=== PATIENT | female | born 2000 | race Caucasian/White ===

== ENCOUNTER 2021-02-19 01:38 | Inpatient (IN) | payer OTHER, SELFPAY ==
[2021-02-19] VITALS (16 sets, daily range): BP systolic 104–133; BP diastolic 55–85; PULSE 55–97; RESP 14–20; TEMP 36.2–37.3; O2SAT 97–100; BMI 37.8; BMI 40.0
--- NOTE | ~2021-02-19 | US_ITS ---
EXAMINATION: ABDOMINAL ULTRASOUND LIMITED CLINICAL INFORMATION: Right upper quadrant pain. COMPARISON: Same day abdominal and pelvic CT. TECHNIQUE: Real-time imaging of the right upper quadrant abdominal viscera. FINDINGS: PANCREAS: The visualized pancreatic head and body are normal in appearance. The remainder of the pancreas is obscured from visualization by the overlying bowel gas. LIVER: The liver is of normal size and echogenicity without focal lesions nor intrahepatic biliary ductal dilation. GALLBLADDER: There is no bladder wall thickening measuring up to 5 mm. No definite pericholecystic fluid is identified. There is debris present within the gallbladder lumen. In addition, there is a 12 mm calculus near the neck of the gallbladder. COMMON BILE DUCT: Normal in caliber measuring 0.4 cm in diameter. RIGHT KIDNEY: Normal. No hydronephrosis. No renal calculi or focal parenchymal lesions. The kidney measures 12.2 cm in maximum dimension. FREE FLUID: None. US/US abdomen limited IMPRESSION: Cholelithiasis and bladder wall thickening suspicious for cholecystitis. Correlate clinically.
--- NOTE | ~2021-02-19 | CT_ITS ---
EXAMINATION: CT ABDOMEN AND PELVIS WITH CONTRAST CLINICAL INFORMATION: Epigastric and right upper quadrant pain. COMPARISON: None. TECHNIQUE: Contiguous axial thin section helical images of the abdomen and pelvis were performed following the administration of 85 mL of intravenous Omnipaque 300. The data set was reformatted in the coronal and sagittal planes and reviewed on an independent workstation. DLP: 853 mGy-cm. FINDINGS: The visualized lung bases are clear. The visualized portions of the heart are unremarkable. The liver is of normal size and attenuation without focal lesions nor intrahepatic biliary ductal dilation. There is gallbladder wall thickening with likely trace adjacent free fluid. There is no cholelithiasis. The gallbladder wall measures approximately 4 mm. The spleen, pancreas, adrenal glands are unremarkable. Both kidneys are of normal size and attenuation without hydronephrosis or nephrolithiasis. Following the administration of IV contrast, prompt symmetric nephrograms are displayed. There is no abdominal free fluid. There is neither mesenteric nor retroperitoneal lymphadenopathy. Normal unopacified loops of small and large bowel are identified. A normal appendix is identified. There is no pelvic free fluid. The urinary bladder is unremarkable. There is neither pelvic nor inguinal lymphadenopathy. Bone windows: Neither sclerotic nor lytic bone lesions are identified. CT/CT abdomen pelvis w con IMPRESSION: Gallbladder wall thickening and likely trace pericholecystic fluid without cholelithiasis. Consider correlation with ultrasound for further tissue characterization. Neither hydronephrosis nor nephrolithiasis. Automated exposure control (Care Dose) Adjustment of the mA and/or kv according to patient size (this includes techniques or standardized protocols for targeted exams where dose is matched to indication / reason for exam; i.e. extremities or head).
--- NOTE | 2021-02-19 02:12 | ED_ITS ---
HPI - Abdominal Pain General Chief Complaint: Abdominal Pain Stated Complaint: ABD PAIN Time Seen by Provider: 02/19/21 01:47 Source: patient Mode of arrival: ambulatory Limitations: no limitations History of Present Illness HPI narrative: Patient comes emergency room complaining of epigastric pain and vomiting. Patient states it started yesterday morning with back pain but the pain was not severe. Patient states that now it is 9/10, states it is very sharp, radiating from the epigastric area to the back bilaterally, woke up at midnight vomiting, 3 episodes of vomiting, no diarrhea. MD elicited complaint: abdominal pain Related Data Allergies Allergy/AdvReac Type Severity Reaction Status Date / Time Penicillins Allergy Intermediate Rash Verified 02/19/21 02:11 Review of Systems Review of Systems Constitutional : No Weight loss, No Fever, No Chills, No Night Sweats, No Fatigue, No Malaise ENT/Mouth : No Hearing loss, No Ear Pain, No Nasal Congestion, No Sinus Pain, No Hoarseness, No sore throat, No Rhinorrhea, No Swallowing Difficulty Eyes: No Eye Pain, No Swelling, No Redness, No Foreign Body, No Discharge, No Vision Changes Cardiovascular : No Chest Pain, No SOB, No Dyspnea on Exertion, No Orthopnea, No Edema, No Palpitations Respiratory : No Cough, No Sputum, No Wheezing, No Smoke Exposure, No Dyspnea Gastrointestinal : Complaining of nausea and vomiting, No Diarrhea, No Constipation, complaining of epigastric pain and right upper quadrant pain, No Hematochezia, No Melena Genitourinary : no irregular bleeding, No Dysuria, No Urinary Frequency, No Hematuria, No Urinary Incontinence, No Urgency, No Flank Pain, No Urinary Flow Changes, No Hesitancy Musculoskeletal : No joint pain, No Myalgias, No Joint Swelling Skin : No Skin Lesions, No rash Neuro : No Weakness, No Numbness, No Paresthesias, No Loss of Consciousness, No Dizziness, No Headache Psych : No Anxiety/Panic, No Depression, No SI/HI/AH/VH, No Social Issues, Heme/Lymph: No Bruising, No Bleeding,No Lymphadenopathy Endocrine : No Polyuria, No Polydipsia, No Temperature Intolerance Physical Exam Vital Signs: Vital Signs: Last Vital Signs Temp 99.1 F 02/19/21 01:58 Pulse 97 02/19/21 01:58 Resp 20 02/19/21 01:58 BP 114/85 02/19/21 01:58 Pulse Ox 98 02/19/21 01:58 Body Mass Index 37.8 Appearance: Alert. Oriented X3. No acute distress. Eyes: Pupils equal, round and reactive to light. ENT: Pharynx normal. Neck: Normal inspection. Neck supple. No lymph nodes noted. No crepitus CVS: Normal heart rate and rhythm. Pulses normal. Normal S1 and S2 Respiratory: No respiratory distress. Breath sounds normal. No Wheezing. No rales Abdomen: Soft, tender to palpation over the epigastric area and right upper quadrant, positive Brush, also has pain over the periumbilical area and right lower quadrant, less than right upper quadrant No rigidity. No distention. good BS x4 Skin: Skin warm and dry. Normal skin color. Normal skin turgor. Extremities: No lower extremity edema. No lower extremity edema. No Lacerations. No Rash Neuro: Oriented X 3. No motor deficit. No sensory deficit. Moving all extermities. No slurred speech. Course Course Course Narrative: I discussed the patient with Dr. Padilla, he will come down and evaluate the patient, patient will likely need surgery. I discussed the plan with the patient, patient agreeable. Patient is allergic to penicillin, instead of Zosyn we will start her on levofloxacin and metronidazole. Patient has been offered pain medication multiple times, patient declined. MDM - Abdominal Pain Lab Data Result diagrams: 02/19/21 02:32 02/19/21 03:57 Labs: Lab Results 02/19/21 02/19/21 02/19/21 Range/Units 02:32 03:15 03:15 WBC 11.2 H (4.8-10.8) X10*3/uL RBC 5.23 (4.20-5.50) X10*6/uL Hgb 13.5 (12.0-16.0) g/dl Hct 42.0 (37-47) % MCV 80.3 (80-98) fL MCH 25.8 L (27.0-33.0) pg MCHC 32.1 (31.0-35.0) g/dl RDW 13.7 (11.0-16.0) % Plt Count 281 (160-400) X10*3/uL MPV 8.5 L (9.4-12.3) fL Immature Gran % (Auto) 0.4 (0.0-0.4) % Neut % (Auto) 69.1 (45-73) % Lymph % (Auto) 20.1 (20-40) % [place] % (Auto) 6.3 (2-11) % Eos % (Auto) 3.7 (0-4) % Baso % (Auto) 0.4 (0-2) % Lymph # (Auto) 2.3 (1.2-4.9) X10*3/uL [place] # (Auto) 0.7 (0.1-1.2) X10*3/uL Eos # (Auto) 0.4 (0.0-0.4) X10*3/uL Baso # (Auto) 0.0 (0.0-0.2) X10*3/uL Abs Immat Gran (auto) 0.04 H (0.00-0.03) X10*3/uL Absolute Neuts (auto) 7.8 (2.0-8.3) X10*3/uL Absolute Nucleated RBC 0.000 (0.0-0.012) X10*3/uL Nucleated RBC % (auto) 0.0 (0.0-0.2) /100WBC Sodium (135-145) mmol/L Potassium (3.3-5.1) mmol/L Chloride (96-108) mmol/L Carbon Dioxide (22-29) mmol/L Anion Gap (12-20) BUN (9-16) mg/dL Creatinine (0.5-1.4) mg/dL Estim Creat Clear Calc Estimated GFR Random Glucose (60-115) mg/dL Calcium (8.4-10.2) mg/dL Total Bilirubin (0.0-1.0) mg/dL Direct Bilirubin (0.0-0.5) mg/dL AST (5-31) U/L ALT (0-31) U/L Alkaline Phosphatase (39-117) U/L Total Protein (6.5-8.0) g/dL Albumin (3.5-5.0) g/dL Lipase (8-78) U/L Urine Color YELLOW Urine Appearance CLEAR Urine pH 6.0 (5.0-8.0) Ur Specific [place] >= 1.030 H (1.005-1.025) Urine Protein NEG (NEG-TRACE) MG/DL Urine Glucose (UA) NEG (NEG) MG/DL Urine Ketones NEG (NEG) MG/DL Urine Blood NEG (NEG) Urine Nitrite NEG (NEG) Ur Leukocyte Esterase NEG (NEG) Urine Test NEGATIVE (NEGATIVE) 02/19/21 Range/Units 03:57 WBC (4.8-10.8) X10*3/uL RBC (4.20-5.50) X10*6/uL Hgb (12.0-16.0) g/dl Hct (37-47) % MCV (80-98) fL MCH (27.0-33.0) pg MCHC (31.0-35.0) g/dl RDW (11.0-16.0) % Plt Count (160-400) X10*3/uL MPV (9.4-12.3) fL Immature Gran % (Auto) (0.0-0.4) % Neut % (Auto) (45-73) % Lymph % (Auto) (20-40) % [place] % (Auto) (2-11) % Eos % (Auto) (0-4) % Baso % (Auto) (0-2) % Lymph # (Auto) (1.2-4.9) X10*3/uL [place] # (Auto) (0.1-1.2) X10*3/uL Eos # (Auto) (0.0-0.4) X10*3/uL Baso # (Auto) (0.0-0.2) X10*3/uL Abs Immat Gran (auto) (0.00-0.03) X10*3/uL Absolute Neuts (auto) (2.0-8.3) X10*3/uL Absolute Nucleated RBC (0.0-0.012) X10*3/uL Nucleated RBC % (auto) (0.0-0.2) /100WBC Sodium 140 (135-145) mmol/L Potassium 3.8 (3.3-5.1) mmol/L Chloride 106 (96-108) mmol/L Carbon Dioxide 24 (22-29) mmol/L Anion Gap 14 (12-20) BUN 8 L (9-16) mg/dL Creatinine 0.59 (0.5-1.4) mg/dL Estim Creat Clear Calc 170.0 Estimated GFR > 60 Random Glucose 117 H (60-115) mg/dL Calcium 8.4 (8.4-10.2) mg/dL Total Bilirubin 0.8 (0.0-1.0) mg/dL Direct Bilirubin 0.2 (0.0-0.5) mg/dL AST 10 (5-31) U/L ALT 17 (0-31) U/L Alkaline Phosphatase 89 (39-117) U/L Total Protein 6.4 L (6.5-8.0) g/dL Albumin 4.0 (3.5-5.0) g/dL Lipase 24 (8-78) U/L Urine Color Urine Appearance Urine pH (5.0-8.0) Ur Specific [place] (1.005-1.025) Urine Protein (NEG-TRACE) MG/DL Urine Glucose (UA) (NEG) MG/DL Urine Ketones (NEG) MG/DL Urine Blood (NEG) Urine Nitrite (NEG) Ur Leukocyte Esterase (NEG) Urine Test (NEGATIVE) Imaging Data CT scan - abdomen: Radiologist's impression: FINDINGS: The visualized lung bases are clear. The visualized portions of the heart are unremarkable. The liver is of normal size and attenuation without focal lesions nor intrahepatic biliary ductal dilation. There is gallbladder wall thickening with likely trace adjacent free fluid. There is no cholelithiasis. The gallbladder wall measures approximately 4 mm. The spleen, pancreas, adrenal glands are unremarkable. Both kidneys are of normal size and attenuation without hydronephrosis or nephrolithiasis. Following the administration of IV contrast, prompt symmetric nephrograms are displayed. There is no abdominal free fluid. There is neither mesenteric nor retroperitoneal lymphadenopathy. Normal unopacified loops of small and large bowel are identified. A normal appendix is identified. There is no pelvic free fluid. The urinary bladder is unremarkable. There is neither pelvic nor inguinal lymphadenopathy. Bone windows: Neither sclerotic nor lytic bone lesions are identified. CT/CT abdomen pelvis w con IMPRESSION: Gallbladder wall thickening and likely trace pericholecystic fluid without cholelithiasis. Consider correlation with ultrasound for further tissue characterization. Neither hydronephrosis nor nephrolithiasis. Automated exposure control (Care Dose) Adjustment of the mA and/or kv according to patient size (this includes techniques or standardized protocols for targeted exams where dose is matched to indication / reason for exam; i.e. extremities or head). US - abdomen: Radiologist's impression: [address] [id number] ReportSigned Patient: ALCON ROMERO#: [id number]: 2000Acct:[id number]/Sex: 20 / FADM Date: 02/19/21Loc: HO.EDAttending Dr: Ordering Physician: NABILA CHACON MD Date of Service: 02/19/21 Procedure(s): US abdomen limited Accession Number(s): [id number] cc: NABILA CHACON MD~ EXAMINATION: ABDOMINAL ULTRASOUND LIMITED CLINICAL INFORMATION: Right upper quadrant pain. COMPARISON: Same day abdominal and pelvic CT. TECHNIQUE: Real-time imaging of the right upper quadrant abdominal viscera. FINDINGS: PANCREAS: The visualized pancreatic head and body are normal in appearance. The remainder of the pancreas is obscured from visualization by the overlying bowel gas. LIVER: The liver is of normal size and echogenicity without focal lesions nor intrahepatic biliary ductal dilation. GALLBLADDER: There is no bladder wall thickening measuring up to 5 mm. No definite pericholecystic fluid is identified. There is debris present within the gallbladder lumen. In addition, there is a 12 mm calculus near the neck of the gallbladder. COMMON BILE DUCT: Normal in caliber measuring 0.4 cm in diameter. RIGHT KIDNEY: Normal. No hydronephrosis. No renal calculi or focal parenchymal lesions. The kidney measures 12.2 cm in maximum dimension. FREE FLUID: None. US/US abdomen limited IMPRESSION: Cholelithiasis and bladder wall thickening suspicious for cholecystitis. Correlate clinically. Discharge Plan Discharge Clinical Impression: Acute cholecystitis Patient Disposition: Admitted As Inpatient [facility] Social History Social History Advance Directives: No Advance Directives Information Provided: No
[2021-02-19] MEDS: ondansetron HCL 4 MG/2 ML VIAL IVPUSH (02:33)
[2021-02-19] MEDS: 0.9 % Sodium Chloride 1,000 ML 999 ML IVCONT (02:33)
[2021-02-19 02:37] LABS: MANUAL DIFF FLAG NO
[2021-02-19 02:38] LABS: Basophils Percent Auto 0.4 % (0-2); Eosinophils Absolute Auto 0.4 X10*3/uL (0.0-0.4); Eosinophils Percent Auto 3.7 % (0-4); Hemoglobin 13.5 g/dl (12.0-16.0); Imm Gran Abs Auto 0.04 X10*3/uL (0.00-0.03); Imm Gran Pct Auto 0.4 % (0.0-0.4); Lymphocytes Absolute Auto 2.3 X10*3/uL (1.2-4.9); Lymphocytes Percent Auto 20.1 % (20-40); Mean Corpuscular HGB Conc 32.1 g/dl (31.0-35.0); Mean Corpuscular Hemoglobin 25.8 pg (27.0-33.0); Mean Corpuscular Volume 80.3 fL (80-98); Mean Platelet Volume 8.5 fL (9.4-12.3); Monocytes Absolute Auto 0.7 X10*3/uL (0.1-1.2); Monocytes Percent Auto 6.3 % (2-11); Neutrophils Absolute Auto 7.8 X10*3/uL (2.0-8.3); Neutrophils Percent Auto 69.1 % (45-73); Platelet Count 281 X10*3/uL (160-400); Red Blood Count 5.23 X10*6/uL (4.20-5.50); Red Cell Distribution Width 13.7 % (11.0-16.0); White Blood Count 11.2 X10*3/uL (4.8-10.8)
[2021-02-19 03:23] LABS: Glucose Urine UA NEG (NEG); Leukocyte Esterase Urine NEG (NEG); Nitrite Urine NEG (NEG); Specific Gravity - Urine >= 1.030 (1.005-1.025); Urine Blood NEG (NEG); Urine Ketones NEG (NEG); Urine Protein NEG (NEG-TRACE)
[2021-02-19 03:25] LABS: Appearance Urine CLEAR; Color Urine YELLOW; UPreg QC Valid YES; Urine Pregnancy NEGATIVE (NEGATIVE)
--- NOTE | 2021-02-19 03:58 | PC.NURSE ---
Labs redrawn by [employer].
[2021-02-19 04:57] LABS: Alanine Aminotransferase 17 U/L (0-31); Alkaline Phosphatase 89 U/L (39-117); Anion Gap 14 (12-20); Aspartate Amino Transferase 10 U/L (5-31); Bilirubin Direct 0.2 mg/dL (0.0-0.5); Bilirubin Total 0.8 mg/dL (0.0-1.0); Blood Urea Nitrogen 8 mg/dL (9-16); Calcium 8.4 mg/dL (8.4-10.2); Carbon Dioxide 24 mmol/L (22-29); Chloride 106 mmol/L (96-108); Estimated Glomerular Filt Rate > 60; Glucose Random 117 mg/dL (60-115); Lipase 24 U/L (8-78); Potassium 3.8 mmol/L (3.3-5.1); Sodium 140 mmol/L (135-145); Total Protein 6.4 g/dL (6.5-8.0)
[2021-02-19] MEDS: levoFLOXacin/D5W 500 MG/100 ML PIGGYBACK 100 MG IV (07:36)
--- NOTE | 2021-02-19 07:44 | P.HPGS_ITS ---
History of Present Illness History of Present Illness Date of Service: 02/19/21 Narrative: JOS ROMERO is a 20 year old female here in the ED for abdominal pain.She says this started about almost 30 hours ago and had awakened her from sleep. She describes this as initially on the epigastric area and right side with radiation to the back. This persisted throughout the day yesterday. She describes 4 episodes of vomitting. In view of her symptoms, she eventually came to the ED after midnight. She says she feels a little better although she admits she still has pain. She denies any similar episodes in the past. She says she does not have any medical problems. Review of Systems Constitutional: Constitutional: Denies chills and Denies fever(s) Cardiovascular: Cardiovascular: Denies chest pain, Denies dyspnea and Denies dyspnea on exertion Respiratory: Respiratory: Denies cough, Denies dyspnea and Denies dyspnea on exertion Gastrointestinal: Gastrointestinal: Denies hematochezia and Denies change in bowel habits Genitourinary: Genitourinary: Denies hematuria Musculoskeletal: Musculoskeletal: Denies back pain and Denies limited range of motion Neurologic: Denies focal weakness and Denies convulsions Psychiatric: Psychiatric: Denies depression and Denies mood swings PMFSH Past Medical History Medical History (Updated 02/19/21 @ 09:34 by Yasir Padilla MD) High BMI No active medical problems Social History Social History Smoking Status: Never smoker Second Hand Smoke Exposure: No Use of substances other than those prescribed or required for medical reasons: No Advance Directives: No Advance Directives Information Provided: No Meds Allergies Allergy/AdvReac Type Severity Reaction Status Date / Time Penicillins Allergy Intermediate Rash Verified 02/19/21 02:11 Active Medications: Current Medications Generic Name Dose Route Start Last Admin Trade Name Freq PRN Reason Stop Dose Admin Levofloxacin 500 mg in 100 mls @ 100 mls/hr 02/19/21 07:02 02/19/21 07:36 Levaquin IV 02/19/21 08:01 100 mls/hr ONCE ONE Administration Metronidazole 500 mg in 100 mls @ 100 mls/hr 02/19/21 07:02 Flagyl IV 02/19/21 08:01 PREOP ONE Physical Exam Vital Signs: Vital Signs: Last Vital Signs Temp 99.1 F 02/19/21 01:58 Pulse 80 02/19/21 07:35 Resp 16 02/19/21 07:35 BP 104/60 02/19/21 07:35 Pulse Ox 100 02/19/21 07:35 Body Mass Index 37.8 Const: Other: appears obese General: comfortable and no acute distress Orientation/consciousness: patient oriented x3 Neck: Neck: Yes no lymphadenopathy Resp: Auscultation: clear to auscultation bilaterally Cardio: Rhythm: regular rhythm GI: Other: has tenderness on the RUQ and epigastric area, Palpation (GI): Soft to palpation, Tenderness to palpation present (GI) and no guarding Neuro: General: patient oriented x3 Results Results Labs: Short CBC 02/19/21 Range/Units 02:32 WBC 11.2 H (4.8-10.8) X10*3/uL Hgb 13.5 (12.0-16.0) g/dl Hct 42.0 (37-47) % Plt Count 281 (160-400) X10*3/uL BMP 02/19/21 03:57 Sodium 140 Potassium 3.8 Chloride 106 Carbon Dioxide 24 BUN 8 L Creatinine 0.59 Calcium 8.4 Liver Function 02/19/21 Range/Units 03:57 Total Bilirubin 0.8 (0.0-1.0) mg/dL Direct Bilirubin 0.2 (0.0-0.5) mg/dL AST 10 (5-31) U/L ALT 17 (0-31) U/L Alkaline Phosphatase 89 (39-117) U/L Albumin 4.0 (3.5-5.0) g/dL Urine 02/19/21 02/19/21 Range/Units 03:15 03:15 Urine Color YELLOW Urine Appearance CLEAR Urine pH 6.0 (5.0-8.0) Ur Specific [place] >= 1.030 H (1.005-1.025) Urine Protein NEG (NEG-TRACE) MG/DL Urine Glucose (UA) NEG (NEG) MG/DL Urine Test NEGATIVE (NEGATIVE) Abdomen CT scan report/results: report reviewed and image reviewed CT scan - pelvis: report reviewed and image reviewed Abdominal ultrasound report/results: report reviewed and image reviewed Assessment and Plan (1) Acute cholecystitis: Status: Acute She has RUQ and epiagstric pain with imaging studies consistent with acute cholecystitis. There is a stone in the neck of the gallbladder. Her LFTs are within normal. I explained to her the technique of laparoscopic cholecystectomy and possible open cholecystectomy. I reviewed the risks including but not limited to bleeding, infections, injury to the bowel, liver, bile ducts, bile leak, retained common bile duct stone, as well as the benefits and alternatives. She states she understands and wants to proceed. She has discussed the above with her family as well. An older sister was with her during the discussion. I have reviewed her CAT scan and ultrasound images.
[2021-02-19] MEDS: Lactated Ringers 500 ML 80 ML IV (08:44)
--- NOTE | 2021-02-19 09:45 | PC.NURSE ---
ATTEMPTED TO CALL REPORT. RN WILL CALL BACK
--- NOTE | 2021-02-19 10:38 | PC.NURSE ---
SPOKE TO OR AT 1015. THEY WILL TAKE PT AT THIS TIME.
[2021-02-19 11:44] LABS: COVID-19 Test Negative (Negative)
--- NOTE | 2021-02-19 13:18 | P.OP_ITS ---
Operative Note Operative Note Date of Service: 02/19/21 Narrative: Preop diagnosis: Acute calculous cholecystitis Postop diagnosis: Acute calculous cholecystitis Procedure: Laparoscopic cholecystectomy Surgeon: Yasir Padilla MD access services assistant: JEREMY Newton The patient is a 20-year-old female admitted because of right upper quadrant and epigastric pain. Her imaging studies showed acute cholecystitis. There was a stone in the the gallbladder. I therefore explained to her the benefits of proceeding with laparoscopic cholecystectomy. I explained the technique of the procedure as well as the risks, benefits, and alternatives and she had given consent. She was brought to the operating room placed supine on the table under general anesthesia via endotracheal tube. The abdomen was prepped draped usual sterile fashion. A surgical time-out was done. The patient received Cefotan 2 g IV preoperatively. I made a short incision on the supraumbilical margin using a blade 15. This was carried down through the full-thickness of the skin and subcutaneous fat down to the fascia. The fascia was incised. The peritoneum was entered and through this incision a Maninder port was introduced. Pneumoperitoneum was introduced to a pressure of 15 minutes hg. From here on the rest of the procedure was done under vision with the laparoscope. Another short incision was made in the skin in the epigastric area below the subcostal margin. A 5/12 mm port was introduce d through a small incision. 5 mm ports where introduced through small incisions below the subcostal margin along the anterior axillary line and the midclavicular line. Graspers were placed through these working ports. The patient was placed in at head-up and [id number] position. The gallbladder was seen and was noted to be very distended, congested obviously inflamed. I was able to apply a grasper at the fundus and this was used to retract the gallbladder cephalad. By doing so I was able to apply another grasper towards the pouch of the gallbladder. This was used to retract the gallbladder laterally. At this point therefore the gallbladder was being retracted in cephalad and lateral fashion. There was note of significant edema fluid surrounding the neck of the gallbladder. Furthermore there was note of marked edema of the wall the gallbladder as well as the area surrounding the neck and the cystic duct. I had to carefully dissect the inflamed fiber areolar tissue from the neck of the gallbladder. By doing so was able to visualize the cystic duct as well as the cystic artery. These 2 were intimately close to each other. Furthermore, in view of the inflammatory changes, the cystic duct was seen to be tenting up the common bile duct. We had to do a lot of careful dissection using the [place] dissector to free up the cystic duct from all the surrounding tissue using the [place] dissector. I had to carefully tease off fibroareolar tissue which were inflamed this area. I was therefore able to achieve a critical view of the hepatocystic triangle. Again the cystic duct as well as artery were seen. The hepatocystic triangle was also fully seen and there was no other structures in this area. With the confluence of the neck of the gallbladder with cystic duct confirmed, I was able to apply clips with 2 clips applied distally. The cystic duct was transected with Endo scissors between clips. I also applied clips on the cystic artery and this was transected between clips as well. With traction on the gallbladder wall away from the liver bed, proceeded to carefully continue to define the area of the hilum. Again there was note of significant edema fluid. I carefully dissected across the hilum using electrocautery spatula until I reached the interface of the gallbladder wall and the liver bed.I had to to switch to an L hook and applied electrocautery to carefully dissect the edematous peritoneum of the gallbladder wall using this L hook. We continued to dissect the gallbladder from the liver bed along this well-defined plane of dissection. Dissection somewhat slow in view of significant gallbladder wall edema. I continued to separate the gallbladder from the liver bed using this the dissection with the L hook with electrocautery all the way to the fundus until the entire gallbladder was completely from the liver bed. The gallbladder was retrieved through an endobag through the umbilical incision. We reinserted all ports and re- insufflated. I copiously irrigated the area of the dissection because of some bile spillage from gallbladder from a loose cystic duct clip. I also observed for all 4 quadrants. There was no other pathology. There was no evidence of any bile leak or any bowel injury. I continued to examined the subhepatic space. The clips all appeared to be intact. Again there was no bleeding or any bile leak After copies irrigation, I proceeded to then desufflate through the port sites. I removed all ports under vision with the laparoscope. The umbilical port was therefore removed last. The fascia of the umbilical incision was closed with a figure-eight Dexon 0 stitch. Skin closure was achieved on all incisions using Dexon 4-0 subcuticular sutures. Steri-Strips and dressings were applied The patient tolerated the procedure well. There were no immediate complications noted. Initial and final counts of sponges and instruments were correct. Estimated blood loss about 20 cc. The patient was extubated without difficulty and transferred to recovery room with stable vital signs.
--- NOTE | 2021-02-19 13:26 | P.BOP_ITS ---
Brief Operative Note Date of Service: 02/19/21 <MERRY King Last Filed: 02/19/21 13:27> Pre-op diagnosis: acute cholecystitis <MERRY King Last Filed: 02/19/21 13:27> Post-op diagnosis: same <MERRY King Last Filed: 02/19/21 13:27> Procedure: laparoscopic cholecystectomy <MERRY King Last Filed: 02/19/21 13:27> Implants: None <MERRY King Last Filed: 02/19/21 13:27> Surgeon: ELAN MABRY MD <MERRY King Last Filed: 02/19/21 13:27> Anesthesia: GETA <MERRY King Last Filed: 02/19/21 13:27> Chemical Engineering Intern: Justa Newton <MERRY King Last Filed: 02/19/21 13:27> Estimated blood loss (mL): 10 <MERRY King Last Filed: 02/19/21 13:27> Pathology: other (gallbladder) <MERRY King Last Filed: 02/19/21 13:27> Condition: stable <MERRY King Last Filed: 02/19/21 13:27> Disposition: PACU <MERRY King Last Filed: 02/19/21 13:27>
[2021-02-19] MEDS: Acetaminophen 325 MG TABLET 650 MG PO (13:40)
[2021-02-19] MEDS: oxyCODONE HCl Immed Release 5 MG TABLET PO ×2 (13:40→19:57)
[2021-02-19] MEDS: HYDROmorphone HCl 0.5 MG/0.5 ML SYRINGE 0.25 MG IVPUSH ×2 (13:40→13:45)
--- NOTE | 2021-02-19 15:09 | P.EN_ITS ---
Event Note Date of Service: 02/19/21 Event Note: Seen postop - underwent laparoscopic cholecystectomy earlier, lazaro entful Seems to have good pain control Stable vital signs Abdomen soft Continue pain control Discussed with her sister postop as well as her brother Clari Frye at [phone] likely dc home devin
[2021-02-19] MEDS: 0.9 % Sodium Chloride Flush 3 ML SYRINGE IVFLUSH (17:26)
[2021-02-19] MEDS: Lactated Ringers 1,000 ML 80 ML IVCONT (17:26)
[2021-02-20] VITALS: BP 117/62; PULSE 65; RESP 18; TEMP 37; O2SAT 99
[2021-02-20] MEDS: Morphine Sulfate 4 MG/ML CARTRIDGE 3 MG IVPUSH ×2 (00:11→06:13)
[2021-02-20] MEDS: Lactated Ringers 1,000 ML 80 ML IVCONT (05:19)
[2021-02-20 07:19] VITALS: BP 112/65; PULSE 64; RESP 16; TEMP 36.3; O2SAT 98
--- NOTE | 2021-02-20 08:03 | P.PNGS_ITS ---
Subjective Subjective Date of Service: 02/20/21 <Justa Newton PA-C - Last Filed: 02/20/21 08:07> 02/20/21 <Yasir Padilla MD - Last Filed: 02/20/21 08:30> Interval history: Feels better. Pain is mild and well controlled- reports pain at umbilical incisions and RUQ to R shoulder. Tolerating solid diet without N/V. OOB and ambulating to bathroom without difficulty. Wants to go home. <Justa Newton PA-C - Last Filed: 02/20/21 08:07> Physical Exam Vital Signs: Vital Signs: Last Vital Signs Temp 97.4 F 02/20/21 07:19 Pulse 64 02/20/21 07:19 Resp 16 02/20/21 07:19 BP 112/65 02/20/21 07:19 Pulse Ox 98 02/20/21 07:19 Body Mass Index 40.0 <Justa Newton PA-C - Last Filed: 02/20/21 08:07> Const: General: healthy appearing, comfortable, no acute distress and alert <Justa Newton PA-C - Last Filed: 02/20/21 08:07> Orientation/consciousness: patient oriented x3 <Justa Newton PA-C - Last Filed: 02/20/21 08:07> Eyes: Sclerae: sclerae normal <Justa Newton PA-C - Last Filed: 02/20/21 08:07> Resp: Effort & Inspection: normal respiratory effort <Justa Newton PA-C - Last Filed: 02/20/21 08:07> Cardio: Rate: regular rate <MERRY King Last Filed: 02/20/21 08:07> GI: Inspection: No distended and Yes incision (dressings c/d/i) <MERRY King Last Filed: 02/20/21 08:07> Palpation (GI): Soft to palpation, Tenderness to palpation present (GI) (mild, incisional), no guarding and not rigid <MERRY King Last Filed: 02/20/21 08:07> Percussion: Yes normal to percussion <Justa Newton PA-C - Last Filed: 02/20/21 08:07> Skin: General skin exam: no rashes or lesions noted <Justa Newton PA-C - Last Filed: 02/20/21 08:07> Neuro: General: patient oriented x3 <Justa Newton PA-C - Last Filed: 02/20/21 08:07> Extrem: General: Yes no clubbing, cyanosis or edema <Justa Newton PA-C - Last Filed: 02/20/21 08:07> Progress Note: A&P Assessment and plan (1) Acute cholecystitis: Status: Acute <Justa Newton PA-C - Last Filed: 02/20/21 08:07> Assessment and Plan: Status post laparoscopic cholecystectomy Doing well postoperatively Abdomen soft - patient says she did not want me to visually examine abdomen for christianity reasons Sclerae anicteric Diet as tolerated Okay to DC home today Discussed instructions with the patient Seen and examined - agree with JEREMY Newton <Yasir Padilla MD - Last Filed: 02/20/21 08:30> (2) S/P laparoscopic cholecystectomy: Status: Acute <Justa Newton PA-C - Last Filed: 02/20/21 08:07> Assessment and Plan: Doing well post op, comfortable. VSS. Abd exam benign with appropriate post op tenderness, dressings c/d/i. Patient feels ready for discharge to home. D/c to home today, f/u in office in [address] Padilla. <Justa Newton PA-C - Last Filed: 02/20/21 08:07> Fall Risk Details Current Medications: Current Medications Generic Name Dose Route Start Last Admin Trade Name Freq PRN Reason Stop Dose Admin Acetaminophen 650 mg 02/19/21 13:30 Acetaminophen 325 Mg Tablet PO Q6H PRN Pain, Mild (Pain Scale 1-3) Lactated Ringer's 1,000 mls @ 80 mls/hr 02/19/21 17:00 02/20/21 05:19 Lr IVCONT 80 mls/hr .[id number] LUCY Administration Morphine Sulfate 3 mg 02/19/21 07:52 02/20/21 06:13 Morphine Sulfate 4 Mg/Ml Cartridge IVPUSH 3 mg Q4H PRN Administration Pain, Severe (Pain Scale 7-10) Ondansetron HCl 4 mg 02/19/21 07:52 Ondansetron Hcl 4 Mg/2 Ml Vial IVPUSH Q8H PRN Nausea and Vomiting Oxycodone HCl 5 mg 02/19/21 16:13 02/19/21 19:57 Oxycodone Hcl Immed Release 5 Mg Tablet PO 5 mg Q4H PRN Administration Pain, Moderate (Pain Scale 4-6 Sodium Chloride 3 ml 02/19/21 08:00 02/20/21 07:31 0.9 % Sodium Chloride Flush 3 Ml Syringe IVFLUSH Not Given QSHIFT [facility] <Justa Newton PA-C - Last Filed: 02/20/21 08:07> Time Spent With Patient Time: Total time spent is greater than 50% in coordination of care (as documented) at patient's floor/unit and/or counseling patient: <Justa Newton PA-C - Last Filed: 02/20/21 08:07> Time with patient: 15 - 24 minutes <Justa Newton PA-C - Last Filed: 02/20/21 08:07>
[2021-02-20] MEDS: oxyCODONE HCl Immed Release 5 MG TABLET PO (09:48)
--- NOTE | 2021-02-20 10:23 | MHC.CM.PN ---
NURSE SALES TEACHER NOTE ELECTRONIC MEDICAL RECORD REVIEWED ALONG WITH CASE DISCUSSED WITH STAFF NURSE, MET WITH PATIENT EXPLAINED THE ROLE OF THE NURSE SALES TEACHER IN THE TRANSITION FROM THE HOSPITAL TO HOME, EDUCATED ABOUT THE IMPORTANCE OF HAVING A HEALTH CARE PROXY. PATIENT LIVES WITH FAMILY, SHE IS SHE WAS ADMITTED WITH DIAGNOSIS OF ACUTE CHOLECYSTITIS And underwent a laparoscopic choley she was independent in all her adls and mobility she is aware that she will be discharged home today and will not need any services discharge plan home no services pcp unknown name , reports it is part of the [facility] on [facility] transportation family follow up with surgeon per discharge instructions
--- NOTE | 2021-02-20 10:45 | PM.DS ---
DS: Providers Provider Date of Service: 02/20/21 Date of admission: 02/19/21 07:52 Primary care physician: Unknown Physician DS: Diagnosis Discharge Diagnosis (1) Acute cholecystitis: Status: Acute (2) S/P laparoscopic cholecystectomy: Status: Acute (3) High BMI: Status: Acute DS: Medications Discharge Medications Home Medications: Previous Rx's Medication Instructions Recorded docusate sodium [Colace] 100 mg PO BID PRN #30 cap 02/20/21 ibuprofen 600 mg PO TID PRN #30 tab 02/20/21 oxycodone-acetaminophen [Percocet] 1 tab PO Q4-6H PRN #20 tab 02/20/21 DS: Summary Hospital Course Hospital Course: JOS ROMERO is a 20 year old female here in the ED for abdominal pain. She says this started about almost 30 hours ago and had awoke her from sleep. It was located in the epigastric area and right side with radiation to the back. This persisted throughout the day yesterday. She describes 4 episodes of vomiting. In view of her symptoms, she eventually came to the ED after midnight. She says she feels a little better although she admits she still has pain. She denies any similar episodes in the past. She denies any medical problems. She had a mildly elevated WBC count in the ED and imaging studies were consistent with acute cholecystitis with a stone in the neck of the gallbladder. HOSPITAL COURSE: She was admitted to the surgical service. It was recommended to proceed with a laparoscopic cholecystectomy, possible open. She elected to proceed. She was added onto the OR schedule for that day. On 02/19/21, a laparoscopic cholecystectomy was performed by Dr. Padilla without complication. The patient tolerated the procedure well and was observed on the medical/surgical floor following the procedure. She had an uncomplicated recovery course. On POD #1, she felt well and was comfortable. She was tolerating a solid diet. Her vitals were stable and abdomen was benign with appropriate post op tenderness and dressings c/d/i. She felt ready for discharge. She was discharged to home in stable condition on 02/20/21. She is to follow up with Dr. Padilla in office in 2 weeks for wound check. Status at Discharge Functional status at discharge: independent ambulation Overall status at discharge: patient is progressing back to baseline Time Spent with Patient Time attestation: Total time spent providing and/or coordinating discharge services: Discharge coordination time: Less than 30 minutes Physical Exam Vital Signs: Vital Signs: Last Vital Signs Temp 97.4 F 02/20/21 07:19 Pulse 64 02/20/21 07:19 Resp 16 02/20/21 07:19 BP 112/65 02/20/21 07:19 Pulse Ox 98 02/20/21 07:19 Body Mass Index 40.0 Const: General: comfortable, no acute distress, well developed and alert Orientation/consciousness: patient oriented x3 Eyes: Sclerae: sclerae normal Resp: Effort & Inspection: normal respiratory effort Cardio: Rate: regular rate GI: Inspection: No distended and Yes incision (dressings c/d/i) Palpation (GI): Soft to palpation, Tenderness to palpation present (GI) (mild incisional ) periumbilically, no guarding, not rigid and No Rebound tenderness present Percussion: Yes normal to percussion Skin: General skin exam: no rashes or lesions noted Neuro: General: patient oriented x3 Extrem: General: Yes no clubbing, cyanosis or edema DS: Data Data Completed and Pending Pending studies at discharge: Pending at discharge 02/19/21 13:06 Surgical [PTH] Routine Labs on day of discharge: Laboratory Results - last 24 hr 02/19/21 11:02 COVID-19 (KIEL) Negative COVID-19 Clin Com See Note Discharge Plan Discharge Patient Disposition: Home, Self-Care Referrals: Yasir Padilla MD [Physician] - 2 Weeks Physician,Unknown [Primary Care Provider] - Discharge Medications: New oxycodone-acetaminophen [Percocet] 5-325 mg tablet 1 tab PO Q4-6H PRN (Reason: pain (scale score 7-10)) Qty: 20 RF: 0 ibuprofen 600 mg tablet 600 mg PO TID PRN (Reason: pain) Qty: 30 RF: 0 docusate sodium [Colace] 100 mg capsule 100 mg PO BID PRN (Reason: constipation) Qty: 30 RF: 0 Discharge Orders: Discharge Order (Routine); Ordered 02/20/21 Ordered By: Justa Newton Diet: low fat, low cholesterol Activity on Discharge: No heavy lifting Stand Alone Forms: Patient Portal Discharge page Activity Restrictions/Additional Instructions: If the incision area is tender, you may apply an ice pack for short intervals (No more than 20 minutes on, followed by at least 20 minutes off). Do not apply heat. Do not use creams, lotions, or topical antibiotics unless instructed to do so by your surgeon. These can cause infection or allergic reaction. Ok to shower 24 hours after your surgery. Remove bandaids in 2 days and replace. You have steri strips (small white cloth strips) covering your incision- these will fall off ~1 week. No heavy lifting (>10-20lbs)! Call Your Doctor If: -Your temperature exceeds 101.5? F -You experience excessive pain or swelling -You have an unexpected reaction to medication -You have excessive bleeding -You experience continued vomiting/nausea -Your incision begins to separate -Your incision shows signs of infection such as increased redness, swelling, excessive pain, drainage (light blood or clear fluid is normal) or heat Care Plan Goals: Return to baseline health and activity following recovery period. Health Concerns: acute cholecystitis s/p laparoscopic cholecystectomy Plan of Treatment: Discharge to home, f/u in office with Dr. Padilla.
[2021-02-20 13:28] VITALS: O2SAT 99
--- NOTE | 2021-02-20 14:12 | HO.POSTANES ---
Post Anesthesia Evaluation Post Anesthesia Evaluation Vital Signs: Vital Signs Temp Pulse Resp BP Pulse Ox 02/20/21 07:19 97.4 F 64 16 112/65 98 Anesthesia: General Mental Status: Awake Pain Control: Satisfactory Nausea/Vomiting: None Hydration: Adequate Anesthesia-Related Issues: No Anes. Related Issues
== END 2021-02-20 15:34 | disposition home or self-care (01) | DRG 263 ==
LOC: HO.ED 07:06 → HO.EDOVER 08:06 → HO.S3 08:37
PROVIDERS: Admitting Provider Surgery; Emergency Provider Emergency Medicine; Visit Provider Surgery
PROC: 0FT44ZZ Resection of Gallbladder, Percutaneous Endoscopic Approach (ICD-10-PCS; CPT 47562; principal; 2021-02-19 12:00)
DX: K81.0 Acute cholecystitis (principal); Z20.822 Contact with and (suspected) exposure to COVID-19; Z79.1 Long term (current) use of non-steroidal anti-inflammatories (NSAID); Z88.0 Allergy status to penicillin; Z79.899 Other long term (current) drug therapy
CPT/HCPCS: 36415; 74177; 76705; 80048; 80076; 81003; 81025; 83690; 85025; 87635; 88304; 96365; 96368; 96375; 99285; J1100; J1170; J1885; J1956; J2250; J2270; J2405; J3010; Q9967

== ENCOUNTER → 2021-03-06 16:14 | Outpatient (BNVA) | payer OTHER, SELFPAY | PROVIDERS: Visit Provider Surgery | DX: Z48.815 Encounter for surgical aftercare following surgery on the digestive system (principal); Z90.49 Acquired absence of other specified parts of digestive tract | CPT/HCPCS: 99212 ==

== ENCOUNTER 2023-03-31 17:59 | Emergency (ER) | payer MEDICAID, SELFPAY ==
--- NOTE | ~2023-03-31 | CT_ITS ---
EXAMINATION: CT ABDOMEN AND PELVIS WITHOUT CONTRAST CLINICAL INFORMATION: Right flank pain COMPARISON: 02/19/2021 TECHNIQUE: Multidetector volumetric imaging was performed from the superior aspect of the liver through the pubic symphysis. Sagittal and coronal reformatted images were obtained on the technologist's workstation. This CT examination was performed using dose optimization techniques as appropriate, variously including the following: *Automated exposure control *Adjustment of mA and/or kV according to patient size (this includes techniques or standardized protocols for targeted exams where dose is matched to indication/reason for exam; i.e. extremities or head) *Use of iterative reconstruction technique DLP: 922 mGy-cm FINDINGS: LUNG BASES: Clear. LIVER, GALLBLADDER, AND BILIARY TREE: The liver is normal in size, shape, and attenuation. No focal hepatic lesion or biliary ductal dilatation is present. Status post cholecystectomy. PANCREAS: Unremarkable. SPLEEN: Unremarkable. ADRENAL GLANDS: Unremarkable. KIDNEYS AND URETERS: The kidneys are normal in size, shape, and attenuation. No hydronephrosis, hydroureter, or calculi seen. No perinephric stranding. BLADDER: Unremarkable. GASTROINTESTINAL TRACT: The small and large bowel are unremarkable. The appendix is unremarkable. ABDOMINAL WALL: No significant hernia is appreciated. LYMPH NODES: Normal. VASCULAR: Unremarkable. PELVIC VISCERA: Unremarkable. OSSEOUS STRUCTURES: Unremarkable. CT/CT abdomen pelvis wo IV con IMPRESSION: No acute intra-abdominal abnormality.
[2023-03-31 18:23] VITALS: BP 129/82; PULSE 74; RESP 18; TEMP 36.6; O2SAT 98; BMI 42.6
--- NOTE | 2023-03-31 18:29 | ED_ITS ---
HPI - Back Pain/Injury General Chief Complaint: Back Pain/Injury Stated Complaint: back pain/abdominal pain, no injury Time Seen by Provider: 03/31/23 23:13 Related Data Previous Rx's ?Medication ?Instructions ?Recorded docusate sodium 100 mg capsule 100 mg PO BID PRN constipation #30 02/20/21 (Colace) caps ibuprofen 600 mg tablet 600 mg PO TID PRN pain #30 tabs 02/20/21 oxycodone-acetaminophen 5 mg-325 1 tab PO Q4-6H PRN pain (scale 02/20/21 mg tablet (Percocet) score 7-10) #20 tabs dicyclomine 20 mg tablet 20 mg PO QID PRN abdominal pain 04/01/23 #20 tabs ibuprofen 600 mg tablet 600 mg PO Q6H PRN fever or pain 04/01/23 #30 tabs Allergies Allergy/AdvReac Type Severity Reaction Status Date / Time Penicillins Allergy Intermediate Rash Verified 03/06/21 16:27 PMFSH Past Medical History Medical History High BMI No active medical problems Surgical History History of laparoscopic cholecystectomy Status post laparoscopic cholecystectomy Social History Social History Household Members: Family Housing: House Do you presently have visiting nurse or other home services: No Alcohol intake: never Comment: RSTING IN BED, EYES CLOSED Smoked in Last 30 Days: No Second Hand Smoke Exposure: No Use of substances other than those prescribed or required for medical reasons: No Advance Directives: No Advance Directives Information Provided: No service: No Current occupational status: unemployed Physical Exam 2 Vital Signs: Vital Signs: Last Vital Signs Temp 97.4 F 03/31/23 21:35 Pulse 70 03/31/23 21:35 Resp 18 03/31/23 21:35 BP 122/76 03/31/23 21:35 Pulse Ox 97 03/31/23 21:35 O2 Del Method Room Air 03/31/23 21:35 BMI result Body Mass Index 42.6 Course Course Course Narrative: This is an RME: Additional HPI, ROS, PE not included below will be deferred to primary provider. 22-year-old female presents with right-sided flank pain, dysuria fatigue, malaise for the past few days, patient also tells me she was a month ago not sure she could be . She reports that her right flank pain radiates into the right abdomen. No nausea, vomiting, fevers, chills. Plan at this time labs, urine, imaging Medications Administered Discontinued Medications Generic Name Dose Route Start Last Admin Trade Name Freq PRN Reason Stop Dose Admin Dicyclomine HCl 20 mg 03/31/23 23:23 03/31/23 23:41 Dicyclomine Hcl 10 Mg Capsule PO 03/31/23 23:24 20 mg ONCE ONE Administration Ondansetron HCl 4 mg 03/31/23 23:23 03/31/23 23:33 Ondansetron Odt 4 Mg Tab.Rapdis TRANSLINGU 03/31/23 23:24 4 mg ONCE ONE Administration Medical Decision Making Lab Data 03/31/23 20:37 03/31/23 20:37 Labs: Lab Results 03/31/23 03/31/23 Range/Units 20:27 20:37 WBC 11.2 H (4.8-10.8) X10*3/uL RBC 5.20 (4.20-5.50) X10*6/uL Hgb 14.1 (12.0-16.0) g/dl Hct 41.7 (37.0-47.0) % MCV 80.2 (80.0-98.0) fL MCH 27.1 (27.0-33.0) pg MCHC 33.8 (31.0-35.0) g/dl RDW 13.5 (11.0-16.0) % Plt Count 312 (160-400) X10*3/uL MPV 8.3 L (9.4-12.3) fL Immature Gran % (Auto) 0.4 (0.0-0.4) % Neut % (Auto) 68.5 (45-73) % Lymph % (Auto) 23.0 (20-40) % [place] % (Auto) 4.5 (2-11) % Eos % (Auto) 3.3 (0-4) % Baso % (Auto) 0.3 (0-2) % Lymph # (Auto) 2.6 (1.2-4.9) X10*3/uL [place] # (Auto) 0.5 (0.1-1.2) X10*3/uL Eos # (Auto) 0.4 (0.0-0.4) X10*3/uL Baso # (Auto) 0.0 (0.0-0.2) X10*3/uL Abs Immat Gran (auto) 0.05 H (0.00-0.03) X10*3/uL Absolute Neuts (auto) 7.7 (2.0-8.3) x10*3/uL Absolute Nucleated RBC 0.000 (0.0-0.012) X10*3/uL Nucleated RBC % (auto) 0.0 (0.0-0.2) /100WBC Sodium 141 (135-145) mmol/L Potassium 4.1 (3.3-5.1) mmol/L Chloride 108 (96-108) mmol/L Carbon Dioxide 24 (22-29) mmol/L Anion Gap 13 (12-20) BUN 8 L (9-16) mg/dL Creatinine 0.62 (0.5-1.4) mg/dL Estim Creat Clear Calc 182.6 Estimated GFR > 60 Random Glucose 89 (60-115) mg/dL Calcium 9.7 D (8.4-10.2) mg/dL Magnesium 2.0 (1.6-2.6) mg/dL Total Bilirubin 0.7 (0.0-1.0) mg/dL AST 15 (5-31) U/L ALT 24 (0-31) U/L Alkaline Phosphatase 103 (39-117) U/L Total Protein 7.5 (6.5-8.0) g/dL Albumin 4.6 (3.5-5.0) g/dL Urine Color Yellow Urine Appearance Clear Urine pH 6.5 (5.0-9.0) Ur Specific [place] 1.010 (1.005-1.025) Urine Protein Negative (Neg-Trace) mg/dL Urine Glucose (UA) Negative (Negative) mg/dL Urine Ketones Negative (Negative) mg/dL Urine Blood Negative (Negative) Urine Nitrite Negative (Negative) Ur Leukocyte Esterase Negative (Negative) Urine Test NEGATIVE (NEGATIVE) Discharge Plan Discharge Clinical Impression: Irritable bowel syndrome Patient Disposition: Home, Self-Care Instructions: Irritable Bowel Syndrome (ED) Additional Instructions: Cause abdominal pain is not very clear Take pain medication as prescribed it may cause constipation Drink plenty of fluid Ibuprofen for back pain Prescriptions: New dicyclomine 20 mg tablet 20 mg PO QID PRN (Reason: abdominal pain) Qty: 20 0RF ibuprofen 600 mg tablet 600 mg PO Q6H PRN (Reason: fever or pain) Qty: 30 0RF No Action oxycodone-acetaminophen [Percocet] 5-325 mg tablet 1 tab PO Q4-6H PRN (Reason: pain (scale score 7-10)) Qty: 20 0RF ibuprofen 600 mg tablet 600 mg PO TID PRN (Reason: pain) Qty: 30 0RF docusate sodium [Colace] 100 mg capsule 100 mg PO BID PRN (Reason: constipation) Qty: 30 0RF Interventions: ED Discharge Assessment Last Done: 04/01/23 00:48 Discharge Date/Time: 04/01/23 00:49 Print Language: Japanese
[2023-03-31 20:42] LABS: MANUAL DIFF FLAG NO
[2023-03-31 20:50] LABS: Basophils Percent Auto 0.3 % (0-2); Eosinophils Absolute Auto 0.4 X10*3/uL (0.0-0.4); Eosinophils Percent Auto 3.3 % (0-4); Hematocrit 41.7 % (37.0-47.0); Hemoglobin 14.1 g/dl (12.0-16.0); Imm Gran Abs Auto 0.05 X10*3/uL (0.00-0.03); Imm Gran Pct Auto 0.4 % (0.0-0.4); Lymphocytes Absolute Auto 2.6 X10*3/uL (1.2-4.9); Mean Corpuscular HGB Conc 33.8 g/dl (31.0-35.0); Mean Corpuscular Hemoglobin 27.1 pg (27.0-33.0); Mean Corpuscular Volume 80.2 fL (80.0-98.0); Mean Platelet Volume 8.3 fL (9.4-12.3); Monocytes Absolute Auto 0.5 X10*3/uL (0.1-1.2); Monocytes Percent Auto 4.5 % (2-11); Neutrophils Absolute Auto 7.7 x10*3/uL (2.0-8.3); Neutrophils Percent Auto 68.5 % (45-73); Platelet Count 312 X10*3/uL (160-400); Red Cell Distribution Width 13.5 % (11.0-16.0); White Blood Count 11.2 X10*3/uL (4.8-10.8)
[2023-03-31 20:51] LABS: Appearance Urine Clear; Color Urine Yellow; Glucose Urine UA Negative (Negative); Leukocyte Esterase Urine Negative (Negative); Nitrite Urine Negative (Negative); PH 6.5 (5.0-9.0); Urine Blood Negative (Negative); Urine Ketones Negative (Negative); Urine Protein Negative (Neg-Trace)
[2023-03-31 20:53] LABS: UPreg QC Valid YES; Urine Pregnancy NEGATIVE (NEGATIVE)
[2023-03-31 21:04] LABS: Alanine Aminotransferase 24 U/L (0-31); Albumin Level 4.6 g/dL (3.5-5.0); Alkaline Phosphatase 103 U/L (39-117); Anion Gap 13 (12-20); Aspartate Amino Transferase 15 U/L (5-31); Bilirubin Total 0.7 mg/dL (0.0-1.0); Blood Urea Nitrogen 8 mg/dL (9-16); Calcium 9.7 mg/dL (8.4-10.2); Carbon Dioxide 24 mmol/L (22-29); Chloride 108 mmol/L (96-108); Creatinine Clr Calc Pharmacy 182.6; Estimated Glomerular Filt Rate > 60; Glucose Random 89 mg/dL (60-115); Potassium 4.1 mmol/L (3.3-5.1); Sodium 141 mmol/L (135-145); Total Protein 7.5 g/dL (6.5-8.0)
[2023-03-31 21:35] VITALS: BP 122/76; PULSE 70; RESP 18; TEMP 36.3; O2SAT 97
[2023-03-31] MEDS: Ondansetron ODT 4 MG TAB.RAPDIS TRANSLINGU (23:33)
[2023-03-31] MEDS: Dicyclomine HCl 10 MG CAPSULE 20 MG PO (23:41)
--- NOTE | 2023-04-01 00:36 | ED.ABDPAIN ---
HPI - Abdominal Pain General Chief Complaint: Back Pain/Injury Stated Complaint: back pain/abdominal pain, no injury Time Seen by Provider: 03/31/23 23:13 Source: patient Mode of arrival: ambulatory Limitations: no limitations History of Present Illness HPI narrative: Patient status post cholecystectomy recently got a month ago since then complaining of diffuse abdominal pain right flank pain lot of gas dysuria no frequency no hematuria no fever or chills denies any stress Related Data Previous Rx's Medication Instructions Recorded docusate sodium 100 mg capsule 100 mg PO BID PRN constipation #30 02/20/21 (Colace) caps ibuprofen 600 mg tablet 600 mg PO TID PRN pain #30 tabs 02/20/21 oxycodone-acetaminophen 5 mg-325 1 tab PO Q4-6H PRN pain (scale 02/20/21 mg tablet (Percocet) score 7-10) #20 tabs dicyclomine 20 mg tablet 20 mg PO QID PRN abdominal pain 04/01/23 #20 tabs ibuprofen 600 mg tablet 600 mg PO Q6H PRN fever or pain 04/01/23 #30 tabs Allergies Allergy/AdvReac Type Severity Reaction Status Date / Time Penicillins Allergy Intermediate Rash Verified 03/06/21 16:27 Review of Systems Review of Systems Yes all other systems are reviewed and are negative PMFSH Past Medical History Medical History High BMI No active medical problems Surgical History History of laparoscopic cholecystectomy Status post laparoscopic cholecystectomy Social History Social History Household Members: Family Housing: House Do you presently have visiting nurse or other home services: No Alcohol intake: never Smoked in Last 30 Days: No Second Hand Smoke Exposure: No Use of substances other than those prescribed or required for medical reasons: No Advance Directives: No Advance Directives Information Provided: No service: No Current occupational status: unemployed Physical Exam ED Vital Signs: Vital Signs - 24 hr 03/31/23 18:23 03/31/23 21:35 Temperature 98 F 97.4 F Pulse Rate 74 70 Respiratory Rate 18 18 Blood Pressure 129/82 122/76 Pulse Oximetry 98 97 Oxygen Delivery Method Room Air Room Air BMI result Body Mass Index 42.6 Appearance: Alert. Oriented X3. No acute distress. Eyes: No pallor or icterus ENT: Pharynx normal. Oral Mucosa moist Neck: Normal inspection. Neck supple. CVS: Normal heart rate and rhythm. Pulses normal. Respiratory: No respiratory distress. Equal air entry bilateral, no wheezing/rales/rhonchi Abdomen: Soft diffuse tenderness no rebound or guarding Bowel sounds are present, no mass palpable, mil R CVA tenderness Skin: Skin warm and dry. Normal skin color. Normal skin turgor. Extremities: No lower extremity edema. No calf tenderness Neuro: Oriented X 3. Medical Decision Making Medical Decision Making [facility] Narrative: Patient nonspecific abdominal pain status post cholecystectomy stable CT scan negative acute pathology will discharge the patient on Bentyl likely IBS Lab Data [facility] Lab Attestation statement: I reviewed the patient's lab results. 03/31/23 20:37 03/31/23 20:37 Labs: Lab Results 03/31/23 03/31/23 03/31/23 Range/Units 20:27 20:27 20:37 WBC 11.2 H (4.8-10.8) X10*3/uL RBC 5.20 (4.20-5.50) X10*6/uL Hgb 14.1 (12.0-16.0) g/dl Hct 41.7 (37.0-47.0) % MCV 80.2 (80.0-98.0) fL MCH 27.1 (27.0-33.0) pg MCHC 33.8 (31.0-35.0) g/dl RDW 13.5 (11.0-16.0) % Plt Count 312 (160-400) X10*3/uL MPV 8.3 L (9.4-12.3) fL Immature Gran % (Auto) 0.4 (0.0-0.4) % Neut % (Auto) 68.5 (45-73) % Lymph % (Auto) 23.0 (20-40) % [place] % (Auto) 4.5 (2-11) % Eos % (Auto) 3.3 (0-4) % Baso % (Auto) 0.3 (0-2) % Lymph # (Auto) 2.6 (1.2-4.9) X10*3/uL [place] # (Auto) 0.5 (0.1-1.2) X10*3/uL Eos # (Auto) 0.4 (0.0-0.4) X10*3/uL Baso # (Auto) 0.0 (0.0-0.2) X10*3/uL Abs Immat Gran (auto) 0.05 H (0.00-0.03) X10*3/uL Absolute Neuts (auto) 7.7 (2.0-8.3) x10*3/uL Absolute Nucleated RBC 0.000 (0.0-0.012) X10*3/uL Nucleated RBC % (auto) 0.0 (0.0-0.2) /100WBC Sodium (135-145) mmol/L Potassium (3.3-5.1) mmol/L Chloride (96-108) mmol/L Carbon Dioxide (22-29) mmol/L Anion Gap (12-20) BUN (9-16) mg/dL Creatinine (0.5-1.4) mg/dL Estim Creat Clear Calc Estimated GFR Random Glucose (60-115) mg/dL Calcium (8.4-10.2) mg/dL Magnesium (1.6-2.6) mg/dL Total Bilirubin (0.0-1.0) mg/dL AST (5-31) U/L ALT (0-31) U/L Alkaline Phosphatase (39-117) U/L Total Protein (6.5-8.0) g/dL Albumin (3.5-5.0) g/dL Urine Color Yellow Urine Appearance Clear Urine pH 6.5 (5.0-9.0) Ur Specific [place] 1.010 (1.005-1.025) Urine Protein Negative (Neg-Trace) mg/dL Urine Glucose (UA) Negative (Negative) mg/dL Urine Ketones Negative (Negative) mg/dL Urine Blood Negative (Negative) Urine Nitrite Negative (Negative) Ur Leukocyte Esterase Negative (Negative) Urine Test NEGATIVE (NEGATIVE) 03/31/23 Range/Units 20:37 WBC (4.8-10.8) X10*3/uL RBC (4.20-5.50) X10*6/uL Hgb (12.0-16.0) g/dl Hct (37.0-47.0) % MCV (80.0-98.0) fL MCH (27.0-33.0) pg MCHC (31.0-35.0) g/dl RDW (11.0-16.0) % Plt Count (160-400) X10*3/uL MPV (9.4-12.3) fL Immature Gran % (Auto) (0.0-0.4) % Neut % (Auto) (45-73) % Lymph % (Auto) (20-40) % [place] % (Auto) (2-11) % Eos % (Auto) (0-4) % Baso % (Auto) (0-2) % Lymph # (Auto) (1.2-4.9) X10*3/uL [place] # (Auto) (0.1-1.2) X10*3/uL Eos # (Auto) (0.0-0.4) X10*3/uL Baso # (Auto) (0.0-0.2) X10*3/uL Abs Immat Gran (auto) (0.00-0.03) X10*3/uL Absolute Neuts (auto) (2.0-8.3) x10*3/uL Absolute Nucleated RBC (0.0-0.012) X10*3/uL Nucleated RBC % (auto) (0.0-0.2) /100WBC Sodium 141 (135-145) mmol/L Potassium 4.1 (3.3-5.1) mmol/L Chloride 108 (96-108) mmol/L Carbon Dioxide 24 (22-29) mmol/L Anion Gap 13 (12-20) BUN 8 L (9-16) mg/dL Creatinine 0.62 (0.5-1.4) mg/dL Estim Creat Clear Calc 182.6 Estimated GFR > 60 Random Glucose 89 (60-115) mg/dL Calcium 9.7 D (8.4-10.2) mg/dL Magnesium 2.0 (1.6-2.6) mg/dL Total Bilirubin 0.7 (0.0-1.0) mg/dL AST 15 (5-31) U/L ALT 24 (0-31) U/L Alkaline Phosphatase 103 (39-117) U/L Total Protein 7.5 (6.5-8.0) g/dL Albumin 4.6 (3.5-5.0) g/dL Urine Color Urine Appearance Urine pH (5.0-9.0) Ur Specific [place] (1.005-1.025) Urine Protein (Neg-Trace) mg/dL Urine Glucose (UA) (Negative) mg/dL Urine Ketones (Negative) mg/dL Urine Blood (Negative) Urine Nitrite (Negative) Ur Leukocyte Esterase (Negative) Urine Test (NEGATIVE) Medications Administered Discontinued Medications Generic Name Dose Route Start Last Admin Trade Name Freq PRN Reason Stop Dose Admin Dicyclomine HCl 20 mg 03/31/23 23:23 03/31/23 23:41 Dicyclomine Hcl 10 Mg Capsule PO 03/31/23 23:24 20 mg ONCE ONE Administration Ondansetron HCl 4 mg 03/31/23 23:23 03/31/23 23:33 Ondansetron Odt 4 Mg Tab.Rapdis TRANSLINGU 03/31/23 23:24 4 mg ONCE ONE Administration Discharge Plan Discharge Clinical Impression: Irritable bowel syndrome Patient Disposition: Home, Self-Care Instructions: Irritable Bowel Syndrome (ED) Additional Instructions: Cause abdominal pain is not very clear Take pain medication as prescribed it may cause constipation Drink plenty of fluid Ibuprofen for back pain Prescriptions: New dicyclomine 20 mg tablet 20 mg PO QID PRN (Reason: abdominal pain) Qty: 20 0RF ibuprofen 600 mg tablet 600 mg PO Q6H PRN (Reason: fever or pain) Qty: 30 0RF No Action oxycodone-acetaminophen [Percocet] 5-325 mg tablet 1 tab PO Q4-6H PRN (Reason: pain (scale score 7-10)) Qty: 20 0RF ibuprofen 600 mg tablet 600 mg PO TID PRN (Reason: pain) Qty: 30 0RF docusate sodium [Colace] 100 mg capsule 100 mg PO BID PRN (Reason: constipation) Qty: 30 0RF
== END 2023-04-01 00:49 | disposition home or self-care (01) ==
PROVIDERS: Physician Assistant; Emergency Provider Internal Medicine
DX: K58.9 Irritable bowel syndrome, unspecified (principal); R10.9 Unspecified abdominal pain; E66.3 Overweight; Z68.41 Body mass index [BMI] 40.0-44.9, adult; Z90.49 Acquired absence of other specified parts of digestive tract; Z79.899 Other long term (current) drug therapy
CPT/HCPCS: 36415; 74176; 80053; 81003; 81025; 83735; 85025; 99284